=== PATIENT | male | born 1955 | race African-American/Black ===

== ENCOUNTER 2019-10-21 14:47 | Inpatient (IN) ==
[2019-10-21 15:53] LABS: Basophils % 0.3 % (0.0-0.8); Eosinophils # 0.1 10*3/uL (0.0-0.87); Hematocrit 29.1 VOL% (42.0-52.0); Hemoglobin 8.8 GM/DL (14.0-18.0); Immature Granulocytes % 0.5 %; Immature Granulocytes Absolute 0.05 #; Lymphocytes % 9.3 % (21.2-54.2); Mean Corpuscular HGB Conc 30.2 GM/DL (32-36); Mean Corpuscular Volume 80.4 FL (87-102); Mean Platelet Volume 11.3 FL (9.6-12.0); Monocytes % 9.7 % (1.7-12.7); Neutrophils % 79.2 % (38.7-73.9); Platelet Count 136 T/CUMM (130-400); Red Blood Count 3.62 MC/CUMM (3.8-5.5); Red Cell Distribution Width 20.5 % (9.3-17.3); White Blood Count 10.8 T/CUMM (4-12)
[2019-10-21 16:36] LABS: Alanine Aminotransferase 17 U/L (16-61); Alkaline Phosphatase 137 U/L (45-117); Aspartate Amino Transferase 59 U/L (0-37); Blood Urea Nitrogen 20 MG/DL (7-18); Calcium 8.3 MG/DL (8.5-10.1); Estimated Glom Filtration Rate 14 ML/MIN; Ferritin 2380.3 ng/ml (26-388); Glucose 113 MG/DL (74-106); Osmolality,Calculated 267.5 MOS/KG (273-304)
[2019-10-21] MEDS ORDERED: POTASSIUM CHLORIDE 20 MEQ TABLET PO STA (16:43)
[2019-10-21 17:30] LABS: Hypochromasia 3+
[2019-10-21 17:31] LABS: Microcytosis 1+; Polychromasia 2+
[2019-10-21 17:32] LABS: Anisocytosis 1+; Ovalocytes Few; Poikilocytosis 1+; Schistocytes Few
[2019-10-21 17:33] LABS: Platelet Estimate Adequate
[2019-10-21] MEDS ORDERED: DEXTROSE 10% 250 ML BAG IV PRN (18:05)
[2019-10-21] MEDS ORDERED: ONDANSETRON 4 MG/2 ML VIAL IV PRN (18:05)
[2019-10-21] MEDS ORDERED: GLUCAGON 1 MG VIAL IM PRN (18:05)
[2019-10-21] MEDS ORDERED: ACETAMINOPHEN 325 MG TABLET PO PRN (18:05)
[2019-10-21] MEDS: ZINC SULFATE 220 MG CAPSULE PO SCH (22:17)
[2019-10-21] MEDS: HYDROXYCHLOROQUINE 200 MG TABLET PO SCH (22:17)
[2019-10-21] MEDS: HEPARIN DRIP 25,000 UNITS/500 ML PREMIX IV SCH (22:19)
[2019-10-22 02:24] LABS: Albumin 2.5 G/DL (3.4-5.0); Bilirubin,Total 1.3 MG/DL (0.2-1.0); Calcium 7.5 MG/DL (8.5-10.1); Osmolality,Calculated 271.2 MOS/KG (273-304); Total Protein 7.1 G/DL (6.4-8.3)
[2019-10-22 07:05] LABS: Basophils % 0.5 % (0.0-0.8); Eosinophils # 0.2 10*3/uL (0.0-0.87); Eosinophils % 1.8 % (0.00-10.9); Hemoglobin 7.6 GM/DL (14.0-18.0); Immature Granulocytes % 0.6 %; Immature Granulocytes Absolute 0.05 #; Lymphocytes # 0.9 10*3/uL (1.4-4.0); Lymphocytes % 10.7 % (21.2-54.2); Mean Corpuscular HGB Conc 29.2 GM/DL (32-36); Mean Platelet Volume 11.4 FL (9.6-12.0); Monocytes % 8.3 % (1.7-12.7); Neutrophils % 78.1 % (38.7-73.9); Platelet Count 125 T/CUMM (130-400); Red Blood Count 3.17 MC/CUMM (3.8-5.5); Red Cell Distribution Width 20.6 % (9.3-17.3); White Blood Count 8.4 T/CUMM (4-12)
[2019-10-22] MEDS ORDERED: PANTOPRAZOLE 40 MG TABLET PO SCH (09:00)
[2019-10-22] MEDS: HYDROXYCHLOROQUINE 200 MG TABLET PO SCH ×2 (09:22→20:44)
[2019-10-22] MEDS: carvediloL 3.125 MG TABLET PO SCH (18:11)
[2019-10-22] MEDS: POTASSIUM CHLORIDE 10 MEQ TABLET PO SCH (20:44)
[2019-10-22] MEDS: HEPARIN DRIP 25,000 UNITS/500 ML PREMIX IV SCH (21:07)
[2019-10-23 03:54] LABS: Basophils % 0.3 % (0.0-0.8); Eosinophils # 0.2 10*3/uL (0.0-0.87); Eosinophils % 2.1 % (0.00-10.9); Immature Granulocytes % 0.4 %; Immature Granulocytes Absolute 0.04 #; Lymphocytes % 10.2 % (21.2-54.2); Mean Corpuscular HGB Conc 31.3 GM/DL (32-36); Mean Corpuscular Volume 77.8 FL (87-102); Monocytes % 8.6 % (1.7-12.7); Neutrophils % 78.4 % (38.7-73.9); Platelet Count 151 T/CUMM (130-400); Red Cell Distribution Width 21.2 % (9.3-17.3)
[2019-10-23 04:01] LABS: Hematocrit 25.6 VOL% (42.0-52.0); Red Blood Count 3.29 MC/CUMM (3.8-5.5); White Blood Count 9.6 T/CUMM (4-12)
[2019-10-23 04:24] LABS: Albumin 2.6 G/DL (3.4-5.0); Bilirubin,Total 2.2 MG/DL (0.2-1.0); Calcium 8.1 MG/DL (8.5-10.1); Osmolality,Calculated 268.7 MOS/KG (273-304); Total Protein 7.2 G/DL (6.4-8.3)
[2019-10-23 04:44] LABS: % Iron Saturation 24.6 % (18-50); Ferritin 3477.5 ng/ml (26-388)
[2019-10-23 05:04] LABS: Sedimentation Rate-Westergren 65 MM/HR (0-20)
[2019-10-23 06:09] LABS: Folate 2.8 NG/ML (5.4-24.0); Vitamin B12 > 2000 PG/ML (211-911)
[2019-10-23] MEDS: HEPARIN DRIP 25,000 UNITS/500 ML PREMIX IV SCH (07:05)
[2019-10-23] MEDS ORDERED: ASPIRIN CHEW 81 MG TABLET PO SCH (09:00)
[2019-10-23] MEDS ORDERED: amLODIPine 10 MG TABLET PO SCH (09:00)
[2019-10-23] MEDS ORDERED: ISOSORBIDE MONONITRATE 60 MG TABLET PO SCH (09:00)
[2019-10-23 10:54] LABS: Hemoglobin A1 (Alkaline) 97.6 % (96.5-98.5); Hemoglobin A2 (Alkaline) 2.4 % (1.5-3.5)
[2019-10-23] MEDS: carvediloL 3.125 MG TABLET PO SCH (11:11)
[2019-10-23] MEDS: POTASSIUM CHLORIDE 10 MEQ TABLET PO SCH (11:12)
[2019-10-23] MEDS: HYDROXYCHLOROQUINE 200 MG TABLET PO SCH ×2 (11:13→20:04)
[2019-10-23] MEDS: ZINC SULFATE 220 MG CAPSULE PO SCH (11:13)
[2019-10-23] MEDS ORDERED: BICILLIN CR 1,200,000 UNIT/2 ML SYRINGE IM ONE (15:00)
[2019-10-23] MEDS: WARFARIN 5 MG TABLET PO SCH (16:11)
[2019-10-24] MEDS: HEPARIN DRIP 25,000 UNITS/500 ML PREMIX IV SCH ×2 (00:40→23:42)
[2019-10-24 04:45] LABS: Basophils % 0.4 % (0.0-0.8); Eosinophils # 0.2 10*3/uL (0.0-0.87); Eosinophils % 1.9 % (0.00-10.9); Hematocrit 26.1 VOL% (42.0-52.0); Hemoglobin 7.7 GM/DL (14.0-18.0); Immature Granulocytes % 0.4 %; Immature Granulocytes Absolute 0.04 #; Lymphocytes # 0.7 10*3/uL (1.4-4.0); Lymphocytes % 6.8 % (21.2-54.2); Mean Corpuscular HGB Conc 29.5 GM/DL (32-36); Mean Corpuscular Volume 81.3 FL (87-102); Monocytes % 8.8 % (1.7-12.7); Neutrophils % 81.7 % (38.7-73.9); Platelet Count 188 T/CUMM (130-400); Red Blood Count 3.21 MC/CUMM (3.8-5.5); Red Cell Distribution Width 21.6 % (9.3-17.3); White Blood Count 9.6 T/CUMM (4-12)
[2019-10-24 04:59] LABS: Albumin 2.5 G/DL (3.4-5.0); Bilirubin,Total 1.5 MG/DL (0.2-1.0); Calcium 7.6 MG/DL (8.5-10.1); Osmolality,Calculated 265.8 MOS/KG (273-304); Total Protein 7.2 G/DL (6.4-8.3)
[2019-10-24] MEDS: HYDROXYCHLOROQUINE 200 MG TABLET PO SCH ×2 (09:23→20:16)
[2019-10-24] MEDS: WARFARIN 5 MG TABLET PO SCH (09:23)
[2019-10-25 05:23] LABS: INR 1.4; PT Patient Result 14.9 SECS (9.8-11.9)
[2019-10-25 08:28] LABS: Basophils % 0.4 % (0.0-0.8); Eosinophils # 0.2 10*3/uL (0.0-0.87); Eosinophils % 2.4 % (0.00-10.9); Hematocrit 27.7 VOL% (42.0-52.0); Hemoglobin 8.2 GM/DL (14.0-18.0); Immature Granulocytes % 0.5 %; Immature Granulocytes Absolute 0.05 #; Lymphocytes % 11.1 % (21.2-54.2); Mean Corpuscular HGB Conc 29.6 GM/DL (32-36); Mean Corpuscular Volume 80.1 FL (87-102); Mean Platelet Volume 10.4 FL (9.6-12.0); Neutrophils % 74.6 % (38.7-73.9); Platelet Count 183 T/CUMM (130-400); Red Blood Count 3.46 MC/CUMM (3.8-5.5); Red Cell Distribution Width 21.6 % (9.3-17.3); White Blood Count 9.3 T/CUMM (4-12)
[2019-10-25] MEDS: WARFARIN 5 MG TABLET PO SCH (08:48)
[2019-10-25 09:40] LABS: Calcium 7.9 MG/DL (8.5-10.1); Osmolality,Calculated 264.9 MOS/KG (273-304)
[2019-10-25] MEDS ORDERED: ENOXAPARIN 100 MG/ML SYRINGE SUBCUT SCH ×2 (11:30→12:30)
[2019-10-25 16:44] VITALS: BP 138/83
== END 2019-10-25 16:15 | disposition home health service (06) | DRG 175 ==
LOC: N.ED 14:47 → N.EDINP 18:03 → SUATTDRO 18:03 → N.EDINP 18:42 → N.2W 19:14
PROVIDERS: ADMIT Internal Medicine; ATTEND Internal Medicine

== ENCOUNTER 2019-11-23 18:05 | Inpatient (IN) ==
[2019-11-23 19:26] LABS: Basophils % 0.4 % (0.0-0.8); Eosinophils # 0.1 10*3/uL (0.0-0.87); Eosinophils % 0.8 % (0.00-10.9); Hematocrit 27.7 VOL% (42.0-52.0); Hemoglobin 8.2 GM/DL (14.0-18.0); Immature Granulocytes % 0.5 %; Immature Granulocytes Absolute 0.05 #; Lymphocytes # 0.8 10*3/uL (1.4-4.0); Lymphocytes % 8.1 % (21.2-54.2); Mean Corpuscular HGB Conc 29.6 GM/DL (32-36); Mean Corpuscular Volume 86.3 FL (87-102); Mean Platelet Volume 10.8 FL (9.6-12.0); Monocytes % 4.9 % (1.7-12.7); Neutrophils % 85.3 % (38.7-73.9); Platelet Count 129 T/CUMM (130-400); Red Blood Count 3.21 MC/CUMM (3.8-5.5); Red Cell Distribution Width 23.2 % (9.3-17.3); White Blood Count 9.5 T/CUMM (4-12)
[2019-11-23] MEDS ORDERED: ACETAMINOPHEN 500 MG TABLET PO STA (19:30)
[2019-11-23 19:34] LABS: INR 2.3; PT Patient Result 23.9 SECS (9.8-11.9); Partial Thromboplastin Time 39.1 SECS (23.9-33.8)
[2019-11-23 19:38] LABS: Alanine Aminotransferase < 9 U/L (16-61); Albumin 2.1 G/DL (3.4-5.0); Alkaline Phosphatase 170 U/L (45-117); Aspartate Amino Transferase 89 U/L (0-37); Blood Urea Nitrogen 17 MG/DL (7-18); Calcium 7.6 MG/DL (8.5-10.1); Estimated Glom Filtration Rate 13 ML/MIN; Glucose 108 MG/DL (74-106); Osmolality,Calculated 264.7 MOS/KG (273-304); Total Protein 7.9 G/DL (6.4-8.3)
[2019-11-23] MEDS ORDERED: PIPERACILLIN/TAZOBACTAM 3,375 MG in SODIUM CHLORIDE 0.9% 100 ML IV STA (20:27)
[2019-11-23] MEDS ORDERED: hydrALAZINE 20 MG/1 ML VIAL IV PRN (21:46)
[2019-11-23] MEDS ORDERED: MORPHINE 4 MG/1 ML VIAL IV PRN (21:46)
[2019-11-23] MEDS ORDERED: NICOTINE 21 MG/24 HR PATCH TRANSDERM PRN (21:46)
[2019-11-23] MEDS ORDERED: DOCUSATE SODIUM 100 MG CAPSULE PO PRN (21:46)
[2019-11-23] MEDS ORDERED: guaiFENesin/DM ER 600-30 MG TABLET PO PRN (21:46)
[2019-11-23] MEDS ORDERED: PROMETHAZINE 25 MG/1 ML VIAL IM PRN (21:46)
[2019-11-23] MEDS ORDERED: ZALEPLON 5 MG CAPSULE PO PRN (21:46)
[2019-11-23] MEDS ORDERED: GLUCAGON 1 MG VIAL IM PRN (21:46)
[2019-11-23] MEDS ORDERED: diphenhydrAMINE CAP 25 MG CAPSULE PO PRN (21:46)
[2019-11-23] MEDS ORDERED: ONDANSETRON 4 MG/2 ML VIAL IV PRN (21:46)
[2019-11-23] MEDS ORDERED: DEXTROSE 50% 25 GM/50 ML VIAL IV PRN (21:46)
[2019-11-23] MEDS ORDERED: VANCOMYCIN INJ 1,250 MG in SODIUM CHLORIDE 0.9% 250 ML IV PRN (23:45)
[2019-11-24] MEDS ORDERED: VANCOMYCIN INJ 2,000 MG in SODIUM CHLORIDE 0.9% 500 ML IV ONE (01:00)
[2019-11-24] MEDS: AZITHROMYCIN INJ 500 MG in SODIUM CHLORIDE 0.9% 250 ML IV SCH (01:40)
[2019-11-24] MEDS: ACETAMINOPHEN 325 MG TABLET PO PRN (01:40)
[2019-11-24] MEDS: PANTOPRAZOLE INJ 200 MG in SODIUM CHLORIDE 0.9% 250 ML IV SCH ×2 (01:40→23:25)
[2019-11-24 05:18] LABS: Basophils % 0.4 % (0.0-0.8); Eosinophils # 0.1 10*3/uL (0.0-0.87); Eosinophils % 1.2 % (0.00-10.9); Hematocrit 23.5 VOL% (42.0-52.0); Immature Granulocytes % 0.7 %; Immature Granulocytes Absolute 0.06 #; Lymphocytes # 0.8 10*3/uL (1.4-4.0); Mean Corpuscular HGB Conc 30.2 GM/DL (32-36); Monocytes % 8.3 % (1.7-12.7); Neutrophils % 79.4 % (38.7-73.9); Red Blood Count 2.83 MC/CUMM (3.8-5.5); Red Cell Distribution Width 23.2 % (9.3-17.3); White Blood Count 8.1 T/CUMM (4-12)
[2019-11-24 05:20] LABS: Hemoglobin 7.1 GM/DL (14.0-18.0); Platelet Count 74 T/CUMM (130-400)
[2019-11-24 05:26] LABS: Calcium 7.6 MG/DL (8.5-10.1); Osmolality,Calculated 263.7 MOS/KG (273-304)
[2019-11-24 05:58] LABS: Hypochromasia 2+; Ovalocytes Slight; Platelet Estimate Decreased
[2019-11-24] MEDS ORDERED: POTASSIUM CHLORIDE RIDER 10 MEQ in PREMIX 1 EACH IV PRN (06:45)
[2019-11-24] MEDS ORDERED: SODIUM CHLORIDE 0.9% 1,000 ML IV PRN (06:46)
[2019-11-24] MEDS ORDERED: POTASSIUM CHLORIDE 20 MEQ TABLET PO ONE (09:00)
[2019-11-24] MEDS: PIPERACILLIN/TAZOBACTAM 3,375 MG in SODIUM CHLORIDE 0.9% 100 ML IV SCH ×2 (10:04→23:25)
[2019-11-24] MEDS ORDERED: VANCOMYCIN INJ 750 MG in SODIUM CHLORIDE 0.9% 250 ML IV PRN (12:57)
[2019-11-24 16:31] LABS: Hepatitis B Core IgM Quant 0.23 Index; Hepatitis B Surface Ag Quant < 0.10 Index; Hepatitis B Surface Ag Result Negative (Negative); Hepatitis C Virus Ab Quant 0.12 Index; Hepatitis C Virus Ab Result Negative (Negative)
[2019-11-24 19:31] LABS: Hematocrit 32.5 VOL% (42.0-52.0)
[2019-11-24] MEDS ORDERED: VANCOMYCIN INJ 750 MG in SODIUM CHLORIDE 0.9% 250 ML IV ONE (21:00)
[2019-11-25] MEDS: AZITHROMYCIN INJ 500 MG in SODIUM CHLORIDE 0.9% 250 ML IV SCH (04:15)
[2019-11-25 05:41] LABS: Basophils # 0.1 10*3/uL (0.0-0.2); Basophils % 0.6 % (0.0-0.8); Eosinophils # 0.1 10*3/uL (0.0-0.87); Eosinophils % 1.4 % (0.00-10.9); Hematocrit 29.4 VOL% (42.0-52.0); Hemoglobin 9.3 GM/DL (14.0-18.0); Immature Granulocytes % 0.6 %; Immature Granulocytes Absolute 0.05 #; Lymphocytes # 0.8 10*3/uL (1.4-4.0); Lymphocytes % 9.2 % (21.2-54.2); Mean Corpuscular HGB Conc 31.6 GM/DL (32-36); Mean Corpuscular Volume 82.8 FL (87-102); Mean Platelet Volume 11.2 FL (9.6-12.0); Monocytes % 8.6 % (1.7-12.7); Neutrophils % 79.6 % (38.7-73.9); Red Blood Count 3.55 MC/CUMM (3.8-5.5); Red Cell Distribution Width 21.6 % (9.3-17.3)
[2019-11-25 06:07] LABS: Platelet Count 77 T/CUMM (130-400)
[2019-11-25 06:16] LABS: Anisocytosis 1+; Hypochromasia 1+; Microcytosis 1+
[2019-11-25 06:17] LABS: Ovalocytes Slight; Platelet Estimate Decreased; Target Cells Slight
[2019-11-25 06:28] LABS: Calcium 7.6 MG/DL (8.5-10.1); Osmolality,Calculated 265.5 MOS/KG (273-304)
[2019-11-25] MEDS: PIPERACILLIN/TAZOBACTAM 3,375 MG in SODIUM CHLORIDE 0.9% 100 ML IV SCH ×2 (11:50→21:35)
[2019-11-26] MEDS: PANTOPRAZOLE INJ 200 MG in SODIUM CHLORIDE 0.9% 250 ML IV SCH (01:09)
[2019-11-26] MEDS: AZITHROMYCIN INJ 500 MG in SODIUM CHLORIDE 0.9% 250 ML IV SCH (04:03)
[2019-11-26 06:05] LABS: Calcium 7.2 MG/DL (8.5-10.1); Osmolality,Calculated 265.7 MOS/KG (273-304)
[2019-11-26 06:08] LABS: Basophils # 0.1 10*3/uL (0.0-0.2); Basophils % 0.8 % (0.0-0.8); Eosinophils # 0.1 10*3/uL (0.0-0.87); Eosinophils % 1.6 % (0.00-10.9); Hematocrit 28.8 VOL% (42.0-52.0); Hemoglobin 8.9 GM/DL (14.0-18.0); Immature Granulocytes % 0.5 %; Immature Granulocytes Absolute 0.04 #; Lymphocytes % 11.4 % (21.2-54.2); Mean Corpuscular HGB Conc 30.9 GM/DL (32-36); Mean Platelet Volume 10.4 FL (9.6-12.0); Neutrophils % 76.7 % (38.7-73.9); Red Blood Count 3.43 MC/CUMM (3.8-5.5); Red Cell Distribution Width 21.8 % (9.3-17.3); White Blood Count 8.7 T/CUMM (4-12)
[2019-11-26 06:15] LABS: PT Patient Result 30.4 SECS (9.8-11.9)
[2019-11-26 06:27] LABS: Platelet Count 76 T/CUMM (130-400)
[2019-11-26 07:39] LABS: Hypochromasia 1+
[2019-11-26 07:40] LABS: Microcytosis 1+; Ovalocytes Few; Platelet Estimate Decreased; Polychromasia Slight; Target Cells Slight
[2019-11-26] MEDS: PIPERACILLIN/TAZOBACTAM 3,375 MG in SODIUM CHLORIDE 0.9% 100 ML IV SCH ×2 (09:25→21:30)
[2019-11-27] MEDS: AZITHROMYCIN INJ 500 MG in SODIUM CHLORIDE 0.9% 250 ML IV SCH (03:23)
[2019-11-27] MEDS: PANTOPRAZOLE INJ 200 MG in SODIUM CHLORIDE 0.9% 250 ML IV SCH (03:23)
[2019-11-27 06:08] LABS: Basophils % 0.4 % (0.0-0.8); Eosinophils # 0.1 10*3/uL (0.0-0.87); Eosinophils % 1.2 % (0.00-10.9); Hematocrit 27.7 VOL% (42.0-52.0); Hemoglobin 8.6 GM/DL (14.0-18.0); Immature Granulocytes % 0.6 %; Immature Granulocytes Absolute 0.05 #; Lymphocytes # 0.8 10*3/uL (1.4-4.0); Lymphocytes % 10.5 % (21.2-54.2); Mean Corpuscular Volume 83.7 FL (87-102); Mean Platelet Volume 11.1 FL (9.6-12.0); Monocytes % 7.8 % (1.7-12.7); Neutrophils % 79.5 % (38.7-73.9); Red Blood Count 3.31 MC/CUMM (3.8-5.5); Red Cell Distribution Width 21.9 % (9.3-17.3); White Blood Count 7.7 T/CUMM (4-12)
[2019-11-27 06:16] LABS: Platelet Count 81 T/CUMM (130-400)
[2019-11-27 06:21] LABS: Calcium 7.6 MG/DL (8.5-10.1); Osmolality,Calculated 262.9 MOS/KG (273-304)
[2019-11-27 06:30] LABS: Hypochromasia 2+; Ovalocytes Slight; Platelet Estimate Decreased
[2019-11-27 06:31] LABS: Microcytosis 1+
[2019-11-27] MEDS: PIPERACILLIN/TAZOBACTAM 3,375 MG in SODIUM CHLORIDE 0.9% 100 ML IV SCH ×2 (09:32→23:30)
[2019-11-27 12:05] LABS: INR 3.3; PT Patient Result 32.7 SECS (9.8-11.9)
[2019-11-28] MEDS: AZITHROMYCIN INJ 500 MG in SODIUM CHLORIDE 0.9% 250 ML IV SCH (03:59)
[2019-11-28] MEDS: PANTOPRAZOLE INJ 200 MG in SODIUM CHLORIDE 0.9% 250 ML IV SCH (05:01)
[2019-11-28] MEDS: PANTOPRAZOLE 40 MG VIAL IV SCH ×2 (10:19→20:42)
[2019-11-28] MEDS: PIPERACILLIN/TAZOBACTAM 3,375 MG in SODIUM CHLORIDE 0.9% 100 ML IV SCH (10:20)
[2019-11-28 13:47] LABS: Basophils % 0.4 % (0.0-0.8); Eosinophils # 0.1 10*3/uL (0.0-0.87); Eosinophils % 1.3 % (0.00-10.9); Hematocrit 28.1 VOL% (42.0-52.0); Hemoglobin 8.5 GM/DL (14.0-18.0); Immature Granulocytes % 0.7 %; Immature Granulocytes Absolute 0.06 #; Lymphocytes # 0.9 10*3/uL (1.4-4.0); Lymphocytes % 9.5 % (21.2-54.2); Mean Corpuscular HGB Conc 30.2 GM/DL (32-36); Mean Corpuscular Volume 85.9 FL (87-102); Monocytes % 7.6 % (1.7-12.7); Neutrophils % 80.5 % (38.7-73.9); Platelet Count 87 T/CUMM (130-400); Red Blood Count 3.27 MC/CUMM (3.8-5.5); Red Cell Distribution Width 22.5 % (9.3-17.3); White Blood Count 9.2 T/CUMM (4-12)
[2019-11-28 14:13] LABS: INR 2.6
[2019-11-28 14:14] LABS: PT Patient Result 26.4 SECS (9.8-11.9)
[2019-11-28 14:30] LABS: Calcium 7.7 MG/DL (8.5-10.1); Osmolality,Calculated 268.4 MOS/KG (273-304)
[2019-11-29] MEDS: PIPERACILLIN/TAZOBACTAM 3,375 MG in SODIUM CHLORIDE 0.9% 100 ML IV SCH ×3 (00:30→21:30)
[2019-11-29 04:39] LABS: Basophils # 0.1 10*3/uL (0.0-0.2); Basophils % 0.7 % (0.0-0.8); Eosinophils # 0.1 10*3/uL (0.0-0.87); Eosinophils % 1.5 % (0.00-10.9); Hematocrit 25.7 VOL% (42.0-52.0); Hemoglobin 7.9 GM/DL (14.0-18.0); Immature Granulocytes % 0.6 %; Immature Granulocytes Absolute 0.05 #; Lymphocytes # 0.9 10*3/uL (1.4-4.0); Lymphocytes % 10.8 % (21.2-54.2); Mean Corpuscular HGB Conc 30.7 GM/DL (32-36); Mean Corpuscular Volume 85.7 FL (87-102); Mean Platelet Volume 11.2 FL (9.6-12.0); Monocytes % 8.2 % (1.7-12.7); Neutrophils % 78.2 % (38.7-73.9); Red Cell Distribution Width 22.2 % (9.3-17.3); White Blood Count 8.2 T/CUMM (4-12)
[2019-11-29 04:47] LABS: INR 2.9; PT Patient Result 29.3 SECS (9.8-11.9)
[2019-11-29 04:52] LABS: Platelet Count 87 T/CUMM (130-400)
[2019-11-29 04:56] LABS: Calcium 7.7 MG/DL (8.5-10.1); Osmolality,Calculated 271.2 MOS/KG (273-304)
[2019-11-29 05:04] LABS: Hypochromasia 2+; Ovalocytes Slight; Platelet Estimate Decreased
[2019-11-29] MEDS: PANTOPRAZOLE 40 MG VIAL IV SCH ×2 (11:11→21:30)
[2019-11-30 06:40] LABS: Basophils # 0.1 10*3/uL (0.0-0.2); Basophils % 0.7 % (0.0-0.8); Eosinophils # 0.1 10*3/uL (0.0-0.87); Eosinophils % 1.2 % (0.00-10.9); Hematocrit 27.6 VOL% (42.0-52.0); Hemoglobin 8.3 GM/DL (14.0-18.0); Immature Granulocytes % 0.7 %; Immature Granulocytes Absolute 0.05 #; Lymphocytes # 0.6 10*3/uL (1.4-4.0); Lymphocytes % 8.1 % (21.2-54.2); Mean Corpuscular HGB Conc 30.1 GM/DL (32-36); Mean Corpuscular Volume 86.5 FL (87-102); Mean Platelet Volume 10.6 FL (9.6-12.0); Monocytes % 5.1 % (1.7-12.7); Neutrophils % 84.2 % (38.7-73.9); Red Blood Count 3.19 MC/CUMM (3.8-5.5); Red Cell Distribution Width 22.3 % (9.3-17.3); White Blood Count 7.7 T/CUMM (4-12)
[2019-11-30 06:41] LABS: Platelet Count 108 T/CUMM (130-400)
[2019-11-30 07:00] LABS: Calcium 8.2 MG/DL (8.5-10.1); Osmolality,Calculated 262.5 MOS/KG (273-304)
[2019-11-30 07:01] LABS: Platelet Estimate Adequate
[2019-11-30 07:02] LABS: Anisocytosis 2+; Hypochromasia 1+; Macrocytosis 1+; Ovalocytes Few; Poikilocytosis 1+; Polychromasia Slight
[2019-11-30 07:03] LABS: Target Cells Few
[2019-11-30] MEDS: PANTOPRAZOLE 40 MG VIAL IV SCH ×2 (08:00→22:25)
[2019-11-30] MEDS: PIPERACILLIN/TAZOBACTAM 3,375 MG in SODIUM CHLORIDE 0.9% 100 ML IV SCH ×3 (09:22→22:25)
[2019-11-30 13:43] LABS: INR 2.1
[2019-11-30 13:52] LABS: PT Patient Result 21.2 SECS (9.8-11.9)
[2019-11-30] MEDS ORDERED: DIAZEPAM 5 MG TABLET PO ONE (14:26)
[2019-12-01 06:24] LABS: Basophils # 0.1 10*3/uL (0.0-0.2); Basophils % 0.6 % (0.0-0.8); Eosinophils # 0.1 10*3/uL (0.0-0.87); Eosinophils % 1.2 % (0.00-10.9); Hematocrit 24.9 VOL% (42.0-52.0); Hemoglobin 7.7 GM/DL (14.0-18.0); Immature Granulocytes % 0.6 %; Immature Granulocytes Absolute 0.05 #; Lymphocytes # 0.8 10*3/uL (1.4-4.0); Lymphocytes % 10.3 % (21.2-54.2); Mean Corpuscular HGB Conc 30.9 GM/DL (32-36); Mean Corpuscular Volume 84.1 FL (87-102); Mean Platelet Volume 10.3 FL (9.6-12.0); Monocytes % 7.6 % (1.7-12.7); Neutrophils % 79.7 % (38.7-73.9); Red Blood Count 2.96 MC/CUMM (3.8-5.5); Red Cell Distribution Width 22.2 % (9.3-17.3); White Blood Count 8.2 T/CUMM (4-12)
[2019-12-01 06:25] LABS: Platelet Count 90 T/CUMM (130-400)
[2019-12-01 06:37] LABS: PT Patient Result 20.9 SECS (9.8-11.9)
[2019-12-01 06:38] LABS: Calcium 7.6 MG/DL (8.5-10.1); Osmolality,Calculated 263.7 MOS/KG (273-304)
[2019-12-01 06:48] LABS: Band Neutrophils 2 % (0-10); Eosinophils 2 % (0-10); Lymphocytes 14 % (20-55); Platelet Estimate Decreased; Segmented Neutrophils 76 % (50-85); Total Cells Counted 100
[2019-12-01 06:49] LABS: Hypochromasia 2+; Microcytosis Slight; Ovalocytes Slight
[2019-12-01 12:11] LABS: INR 1.9
[2019-12-01] MEDS: PANTOPRAZOLE 40 MG VIAL IV SCH ×2 (15:56→21:02)
[2019-12-01] MEDS: LEVOFLOXACIN 500 MG TABLET PO SCH (15:56)
[2019-12-02 06:36] LABS: Basophils # 0.1 10*3/uL (0.0-0.2); Basophils % 0.6 % (0.0-0.8); Eosinophils # 0.1 10*3/uL (0.0-0.87); Eosinophils % 1.2 % (0.00-10.9); Hematocrit 23.8 VOL% (42.0-52.0); Hemoglobin 7.4 GM/DL (14.0-18.0); Immature Granulocytes % 0.4 %; Immature Granulocytes Absolute 0.03 #; Lymphocytes # 0.9 10*3/uL (1.4-4.0); Mean Corpuscular HGB Conc 31.1 GM/DL (32-36); Mean Corpuscular Volume 85.9 FL (87-102); Mean Platelet Volume 10.4 FL (9.6-12.0); Monocytes % 7.8 % (1.7-12.7); Platelet Count 98 T/CUMM (130-400); Red Blood Count 2.77 MC/CUMM (3.8-5.5); White Blood Count 8.2 T/CUMM (4-12)
[2019-12-02 07:02] LABS: Calcium 7.5 MG/DL (8.5-10.1); Osmolality,Calculated 257.9 MOS/KG (273-304)
[2019-12-02 09:41] LABS: Basophils # 0.1 10*3/uL (0.0-0.2); Basophils % 0.5 % (0.0-0.8); Eosinophils # 0.1 10*3/uL (0.0-0.87); Hematocrit 25.7 VOL% (42.0-52.0); Hemoglobin 7.8 GM/DL (14.0-18.0); Immature Granulocytes % 0.4 %; Immature Granulocytes Absolute 0.04 #; Lymphocytes # 0.9 10*3/uL (1.4-4.0); Lymphocytes % 9.7 % (21.2-54.2); Mean Corpuscular HGB Conc 30.4 GM/DL (32-36); Mean Platelet Volume 10.7 FL (9.6-12.0); Monocytes % 7.3 % (1.7-12.7); Neutrophils % 81.1 % (38.7-73.9); Platelet Count 105 T/CUMM (130-400); Red Blood Count 2.99 MC/CUMM (3.8-5.5); Red Cell Distribution Width 21.8 % (9.3-17.3); White Blood Count 9.2 T/CUMM (4-12)
[2019-12-02 10:02] LABS: Band Neutrophils 2 % (0-10); Burr Cells Few; Hypochromasia 3+; Lymphocytes 7 % (20-55); Microcytosis 2+; Ovalocytes Few; Platelet Estimate Adequate; Schistocytes Slight; Segmented Neutrophils 90 % (50-85); Total Cells Counted 100
[2019-12-02] MEDS: POTASSIUM CHLORIDE 20 MEQ TABLET PO SCH (10:05)
[2019-12-02] MEDS: PANTOPRAZOLE 40 MG VIAL IV SCH ×2 (10:05→21:25)
[2019-12-02 12:50] LABS: Elliptocytes Few; Hypochromasia 4+; Ovalocytes Slight; Platelet Estimate Adequate; Polychromasia Slight
[2019-12-02 13:58] LABS: Basophils # 0.1 10*3/uL (0.0-0.2); Basophils % 0.6 % (0.0-0.8); Eosinophils # 0.1 10*3/uL (0.0-0.87); Hematocrit 24.8 VOL% (42.0-52.0); Hemoglobin 7.5 GM/DL (14.0-18.0); Immature Granulocytes % 0.4 %; Immature Granulocytes Absolute 0.04 #; Lymphocytes # 0.9 10*3/uL (1.4-4.0); Lymphocytes % 10.1 % (21.2-54.2); Mean Corpuscular HGB Conc 30.2 GM/DL (32-36); Mean Corpuscular Volume 87.3 FL (87-102); Mean Platelet Volume 10.4 FL (9.6-12.0); Monocytes % 7.4 % (1.7-12.7); Neutrophils % 80.5 % (38.7-73.9); Platelet Count 106 T/CUMM (130-400); Red Blood Count 2.84 MC/CUMM (3.8-5.5); Red Cell Distribution Width 21.9 % (9.3-17.3); White Blood Count 9.3 T/CUMM (4-12)
[2019-12-03 07:00] LABS: Basophils # 0.1 10*3/uL (0.0-0.2); Basophils % 0.5 % (0.0-0.8); Eosinophils # 0.1 10*3/uL (0.0-0.87); Eosinophils % 0.8 % (0.00-10.9); Hematocrit 23.4 VOL% (42.0-52.0); Hemoglobin 7.3 GM/DL (14.0-18.0); Immature Granulocytes % 0.7 %; Immature Granulocytes Absolute 0.06 #; Lymphocytes # 1.1 10*3/uL (1.4-4.0); Lymphocytes % 11.5 % (21.2-54.2); Mean Corpuscular HGB Conc 31.2 GM/DL (32-36); Mean Corpuscular Volume 84.2 FL (87-102); Mean Platelet Volume 10.9 FL (9.6-12.0); Neutrophils % 80.5 % (38.7-73.9); Platelet Count 99 T/CUMM (130-400); Red Blood Count 2.78 MC/CUMM (3.8-5.5); Red Cell Distribution Width 21.9 % (9.3-17.3); White Blood Count 9.1 T/CUMM (4-12)
[2019-12-03 07:07] LABS: Calcium 7.6 MG/DL (8.5-10.1); Osmolality,Calculated 260.8 MOS/KG (273-304)
[2019-12-03 07:17] LABS: INR 1.5; PT Patient Result 15.6 SECS (9.8-11.9)
[2019-12-03] MEDS: PANTOPRAZOLE 40 MG VIAL IV SCH ×3 (07:45→21:52)
[2019-12-03] MEDS: POTASSIUM CHLORIDE 20 MEQ TABLET PO SCH ×2 (07:45→08:07)
[2019-12-03 09:34] LABS: Alanine Aminotransferase < 9 U/L (16-61); Albumin 1.5 G/DL (3.4-5.0); Alkaline Phosphatase 261 U/L (45-117); Aspartate Amino Transferase 95 U/L (0-37); Bilirubin,Indirect 0.5 MG/DL (0.0-1.0)
[2019-12-03 13:03] LABS: Ovalocytes Slight; Polychromasia Slight
[2019-12-03 13:04] LABS: Platelet Estimate Adequate; Target Cells Slight
[2019-12-03] MEDS: LEVOFLOXACIN 500 MG TABLET PO SCH (16:32)
[2019-12-04 05:46] LABS: INR 1.5; PT Patient Result 15.7 SECS (9.8-11.9)
[2019-12-04 05:58] LABS: Basophils # 0.1 10*3/uL (0.0-0.2); Basophils % 0.6 % (0.0-0.8); Eosinophils # 0.1 10*3/uL (0.0-0.87); Hematocrit 22.7 VOL% (42.0-52.0); Hemoglobin 7.2 GM/DL (14.0-18.0); Immature Granulocytes % 0.6 %; Immature Granulocytes Absolute 0.05 #; Lymphocytes % 11.7 % (21.2-54.2); Mean Corpuscular HGB Conc 31.7 GM/DL (32-36); Mean Corpuscular Volume 84.1 FL (87-102); Monocytes % 7.1 % (1.7-12.7); Platelet Count 98 T/CUMM (130-400); Red Cell Distribution Width 21.6 % (9.3-17.3); White Blood Count 8.6 T/CUMM (4-12)
[2019-12-04 06:20] LABS: Alanine Aminotransferase < 9 U/L (16-61); Albumin 1.6 G/DL (3.4-5.0); Alkaline Phosphatase 236 U/L (45-117); Aspartate Amino Transferase 91 U/L (0-37); Blood Urea Nitrogen 26 MG/DL (7-18); Estimated Glom Filtration Rate 9 ML/MIN; Osmolality,Calculated 256.2 MOS/KG (273-304)
[2019-12-04 06:28] LABS: Alanine Aminotransferase < 9 U/L (16-61); Albumin 1.6 G/DL (3.4-5.0); Alkaline Phosphatase 234 U/L (45-117); Aspartate Amino Transferase 94 U/L (0-37); Bilirubin,Indirect 0.7 MG/DL (0.0-1.0); Total Protein 7.2 G/DL (6.4-8.3)
[2019-12-04 06:29] LABS: Calcium 7.9 MG/DL (8.5-10.1); Osmolality,Calculated 253.4 MOS/KG (273-304)
[2019-12-04 06:39] LABS: Calcium 7.9 MG/DL (8.5-10.1); Glucose 49 MG/DL (74-106)
[2019-12-04 06:43] LABS: Hypochromasia 2+; Lymphocytes 12 % (20-55); Ovalocytes Slight; Platelet Estimate Decreased; Segmented Neutrophils 84 % (50-85); Total Cells Counted 100
[2019-12-04] MEDS: POTASSIUM CHLORIDE 20 MEQ TABLET PO SCH (09:37)
[2019-12-04] MEDS: PANTOPRAZOLE 40 MG VIAL IV SCH ×2 (09:38→22:13)
[2019-12-04] MEDS: DEXTROSE 5% 1,000 ML IV SCH (10:31)
[2019-12-04] MEDS ORDERED: SODIUM CHLORIDE 0.9% 1,000 ML IV PRN (11:49)
[2019-12-04 12:41] LABS: Hemoglobin 7.6 GM/DL (14.0-18.0)
[2019-12-04] MEDS ORDERED: DEXTROSE 5% 1,000 ML IV SCH (16:00)
[2019-12-04 18:09] LABS: Hematocrit 24.5 VOL% (42.0-52.0); Hemoglobin 7.7 GM/DL (14.0-18.0)
[2019-12-04 23:44] LABS: Hematocrit 23.2 VOL% (42.0-52.0); Hemoglobin 7.2 GM/DL (14.0-18.0)
[2019-12-05 06:52] LABS: INR 1.6; PT Patient Result 16.5 SECS (9.8-11.9)
[2019-12-05 07:01] LABS: Basophils % 0.4 % (0.0-0.8); Eosinophils # 0.1 10*3/uL (0.0-0.87); Eosinophils % 0.9 % (0.00-10.9); Hematocrit 23.1 VOL% (42.0-52.0); Hemoglobin 7.1 GM/DL (14.0-18.0); Immature Granulocytes % 0.6 %; Immature Granulocytes Absolute 0.05 #; Lymphocytes # 0.9 10*3/uL (1.4-4.0); Lymphocytes % 10.9 % (21.2-54.2); Mean Corpuscular HGB Conc 30.7 GM/DL (32-36); Mean Corpuscular Volume 87.2 FL (87-102); Mean Platelet Volume 11.6 FL (9.6-12.0); Monocytes % 7.6 % (1.7-12.7); Neutrophils % 79.6 % (38.7-73.9); Platelet Count 105 T/CUMM (130-400); Red Blood Count 2.65 MC/CUMM (3.8-5.5); Red Cell Distribution Width 21.8 % (9.3-17.3); White Blood Count 8.4 T/CUMM (4-12)
[2019-12-05 07:04] LABS: Alanine Aminotransferase < 6 U/L (16-61); Albumin 1.5 G/DL (3.4-5.0); Alkaline Phosphatase 243 U/L (45-117); Aspartate Amino Transferase 97 U/L (0-37); Blood Urea Nitrogen 19 MG/DL (7-18); Calcium 8.2 MG/DL (8.5-10.1); Estimated Glom Filtration Rate 11 ML/MIN; Glucose 53 MG/DL (74-106); Osmolality,Calculated 256.9 MOS/KG (273-304); Total Protein 6.9 G/DL (6.4-8.3)
[2019-12-05 07:14] LABS: Hypochromasia 1+; Platelet Estimate Decreased
[2019-12-05] MEDS ORDERED: DIAZEPAM 5 MG TABLET PO ONE (09:25)
[2019-12-05] MEDS: PANTOPRAZOLE 40 MG VIAL IV SCH (12:22)
[2019-12-05] MEDS: POTASSIUM CHLORIDE 20 MEQ TABLET PO SCH (12:22)
[2019-12-05] MEDS: LEVOFLOXACIN 500 MG TABLET PO SCH (17:02)
[2019-12-06] MEDS: ACETAMINOPHEN 325 MG TABLET PO PRN (01:56)
[2019-12-06] MEDS: PANTOPRAZOLE 40 MG VIAL IV SCH ×3 (06:54→20:30)
[2019-12-06] MEDS: DEXTROSE 5% 1,000 ML IV SCH (07:36)
[2019-12-06] MEDS: POTASSIUM CHLORIDE 20 MEQ TABLET PO SCH (08:08)
[2019-12-06 11:03] LABS: Basophils % 0.4 % (0.0-0.8); Eosinophils # 0.1 10*3/uL (0.0-0.87); Eosinophils % 1.1 % (0.00-10.9); Hematocrit 21.7 VOL% (42.0-52.0); Hemoglobin 6.8 GM/DL (14.0-18.0); Immature Granulocytes % 0.5 %; Immature Granulocytes Absolute 0.04 #; Lymphocytes # 0.9 10*3/uL (1.4-4.0); Lymphocytes % 12.1 % (21.2-54.2); Mean Corpuscular HGB Conc 31.3 GM/DL (32-36); Mean Corpuscular Volume 86.5 FL (87-102); Mean Platelet Volume 10.8 FL (9.6-12.0); Monocytes % 8.8 % (1.7-12.7); Neutrophils % 77.1 % (38.7-73.9); Red Blood Count 2.51 MC/CUMM (3.8-5.5); Red Cell Distribution Width 22.1 % (9.3-17.3); White Blood Count 7.6 T/CUMM (4-12)
[2019-12-06 11:05] LABS: Platelet Count 80 T/CUMM (130-400)
[2019-12-06 11:12] LABS: INR 1.7
[2019-12-06 11:19] LABS: Hypochromasia 2+; Platelet Estimate Decreased
[2019-12-06 11:20] LABS: Microcytosis Slight; Target Cells Few
[2019-12-06 11:43] LABS: Alanine Aminotransferase < 9 U/L (16-61); Albumin 1.5 G/DL (3.4-5.0); Alkaline Phosphatase 240 U/L (45-117); Aspartate Amino Transferase 101 U/L (0-37); Blood Urea Nitrogen 24 MG/DL (7-18); Calcium 8.1 MG/DL (8.5-10.1); Estimated Glom Filtration Rate 9 ML/MIN; Glucose 80 MG/DL (74-106); Osmolality,Calculated 259.1 MOS/KG (273-304); Total Protein 7.2 G/DL (6.4-8.3)
[2019-12-06 17:16] LABS: Hematocrit 28.4 VOL% (42.0-52.0)
[2019-12-07 05:27] LABS: Basophils % 0.5 % (0.0-0.8); Eosinophils # 0.1 10*3/uL (0.0-0.87); Eosinophils % 1.5 % (0.00-10.9); Hematocrit 26.9 VOL% (42.0-52.0); Hemoglobin 8.5 GM/DL (14.0-18.0); Immature Granulocytes % 0.7 %; Immature Granulocytes Absolute 0.05 #; Lymphocytes # 0.7 10*3/uL (1.4-4.0); Lymphocytes % 9.7 % (21.2-54.2); Mean Corpuscular HGB Conc 31.6 GM/DL (32-36); Mean Corpuscular Volume 86.2 FL (87-102); Mean Platelet Volume 10.2 FL (9.6-12.0); Monocytes % 9.1 % (1.7-12.7); Neutrophils % 78.5 % (38.7-73.9); Red Blood Count 3.12 MC/CUMM (3.8-5.5); White Blood Count 7.4 T/CUMM (4-12)
[2019-12-07 05:29] LABS: Platelet Count 86 T/CUMM (130-400)
[2019-12-07 06:05] LABS: Hypochromasia 2+; Microcytosis Slight; Ovalocytes Slight; Platelet Estimate Decreased
[2019-12-07 08:31] VITALS: BP 123/74
[2019-12-07 08:47] LABS: Alanine Aminotransferase < 9 U/L (16-61); Albumin 1.6 G/DL (3.4-5.0); Alkaline Phosphatase 231 U/L (45-117); Aspartate Amino Transferase 101 U/L (0-37); Blood Urea Nitrogen 17 MG/DL (7-18); Calcium 7.5 MG/DL (8.5-10.1); Estimated Glom Filtration Rate 13 ML/MIN; Glucose 58 MG/DL (74-106); Osmolality,Calculated 261.7 MOS/KG (273-304); Total Protein 6.8 G/DL (6.4-8.3)
[2019-12-07] MEDS: POTASSIUM CHLORIDE 20 MEQ TABLET PO SCH ×2 (09:46→10:00)
[2019-12-07] MEDS: PANTOPRAZOLE 40 MG VIAL IV SCH (09:47)
== END 2019-12-07 14:25 | disposition home health service (06) | DRG 853 ==
LOC: N.ED 18:05 → SUATTDRO 21:46 → N.EDINP 21:46 → N.2E 11-24 00:36 → N.3E 11-30 18:17
PROVIDERS: ADMIT Internal Medicine; ATTEND Family Medicine